=== PATIENT | male | born 1960 | race Two or more races ===

== ENCOUNTER 2017-02-12 12:40 | Emergency (ER) | payer OTHER ==
[~2017-02-12] VITALS: Ht 175.3 cm; Wt 86.2 kg
[2017-02-12] MEDS ORDERED: IV NS 0.9% 1,000 ML ONE (12:50)
[2017-02-12] MEDS ORDERED: IV SET PRIMARY PUMP SET 1 EA INFUS.SET MC ONE (12:50)
[2017-02-12] MEDS ORDERED: IV NS 0.9% 1,000 ML BAG IV ONE (13:00)
--- NOTE | 2017-02-12 13:03 | NUR ---
PT REC;D TO ER VIA EMS PT ETOH AND METH OD SKIN DRY HARD TO WAKE IV PRESENT LEFT 18G FA SITE GOOD . IV NS BOLUS GIVEN PER MD ORDER O2 SATS 100 N/C 2L AWAITING EVALUATION BY ER PROVIDER.
--- NOTE | 2017-02-12 13:08 | NUR ---
LABS DRAWN SENT TO LAB CONT TO MONITOR
[2017-02-12 13:28] LABS: CALCIUM, SERUM 9.2 mg/dL (8.5-10.1); CREATININE 1.1 mg/dL (0.6-1.3); POTASSIUM 3.9 mmol/L (3.5-5.1)
[2017-02-12 13:33] LABS: ALBUMIN 3.7 g/dL (3.4-5.0); BILIRUBIN,DIRECT 0.1 mg/dL (0.0-0.2); BILIRUBIN,TOTAL 0.3 mg/dL (0.2-1.0); TOTAL PROTEIN, SERUM 7.7 g/dL (6.4-8.2)
--- NOTE | 2017-02-12 13:42 | NUR ---
PT IN AND OUT CATH UA SENT TO LAB
[2017-02-12 13:46] LABS: HEMATOCRIT 39 % (39-51); MEAN CORPUSCULAR VOLUME 89 fL (80-96); RED BLOOD CELL COUNT(AUTO) 4.41 MIL/uL (4.5-6.0); WHITE BLOOD COUNT (AUTO) 10.6 K/uL (4.3-11.0)
[2017-02-12 13:47] LABS: BASOPHILS # (AUTO) 0.1 /CMM (0.0-0.2); BASOPHILS % (AUTO) 0.8 % (0.0-2.0); EOSINOPHILS # (AUTO) 0.5 /CMM (0.0-0.7); EOSINOPHILS % (AUTO) 4.4 % (0.0-6.0); LYMPHOCYTES # (AUTO) 1.8 /CMM (0.8-4.8); LYMPHOCYTES % (AUTO) 16.7 % (20.0-44.0); MEAN CORPUSCULAR HEMOGLOBIN 30 PG (26.0-33.0); MEAN CORPUSCULAR HGB CONC 33 g/dl (31.0-36.0); MONOCYTES # (AUTO) 1.1 /CMM (0.1-1.30); MONOCYTES % (AUTO) 10.6 % (2.0-12.0); NEUTROPHILS # (AUTO) 7.2 /CMM (1.8-8.9); NEUTROPHILS % (AUTO) 67.5 % (43.0-81.0); PLATELET COUNT (AUTO) 257 /CMM (150-450)
--- NOTE | 2017-02-12 13:52 | NUR ---
PT EASILY AROUSED VSS CONT TO MONITOR
--- NOTE | 2017-02-12 14:47 | NUR ---
IV FROM EMS PT PULLED OUT RESTARTED RT THUMB 22 G IV NS INFUSING WELL CONT TO MONITOR
--- NOTE | 2017-02-12 15:30 | NUR ---
IV removed. Catheter intact and site benign. Pressure and 4x4 applied to site. No bleeding noted.PT. VERBALIZED UNDERSTANDING OF AFTERCARE INSTRUCTIONS.Patient discharged to home in stable condition. Written and verbal after care instructions given. Patient verbalizes understanding of instruction.
[2017-02-12 15:44] VITALS: BP 152/91
== END 2017-02-12 15:43 | disposition home or self-care (01) ==
LOC: ER 12:43
DX: T40.3X1A Poisoning by methadone, accidental (unintentional), initial encounter (principal); J44.9 Chronic obstructive pulmonary disease, unspecified; G89.29 Other chronic pain; F17.210 Nicotine dependence, cigarettes, uncomplicated; T40.601A Poisoning by unspecified narcotics, accidental (unintentional), initial encounter; Y92.89 Other specified places as the place of occurrence of the external cause
CPT/HCPCS: 36415; 80048-TC; 80076-TC; 85025-TC; A4606; J7030; Z7610

== ENCOUNTER 2020-07-10 09:51 | Emergency (ER) | payer OTHER ==
[~2020-07-10] VITALS: Ht 172.7 cm; Wt 69.9 kg
[2020-07-10 10:00] VITALS: BP 144/95
== END 2020-07-10 10:44 | disposition home or self-care (01) ==
LOC: ER 09:56
DX: M70.22 Olecranon bursitis, left elbow (principal); J44.9 Chronic obstructive pulmonary disease, unspecified; Z98.890 Other specified postprocedural states; Y93.9 Activity, unspecified